=== PATIENT | male | born 1960 | race Caucasian/White ===

== ENCOUNTER → 2020-05-21 13:46 | Outpatient (BNVA) | payer MEDICARE, MEDICAID, SELFPAY | PROVIDERS: Visit Provider Internal Medicine | DX: I63.9 Cerebral infarction, unspecified (principal); Z95.818 Presence of other cardiac implants and grafts | CPT/HCPCS: 93005; 99212 ==

== ENCOUNTER → 2020-10-07 13:11 | Outpatient (BNVA) | payer MEDICARE, MEDICAID, SELFPAY | PROVIDERS: PCP Internal Medicine; Referring Provider Internal Medicine; Visit Provider Nurse Practitioner Family | DX: R07.89 Other chest pain (principal); I63.9 Cerebral infarction, unspecified; Z95.818 Presence of other cardiac implants and grafts; Z98.890 Other specified postprocedural states | CPT/HCPCS: 93005; 99212 ==

== ENCOUNTER → 2020-11-23 13:16 | Outpatient (BNVA) | payer MEDICARE, MEDICAID, SELFPAY | PROVIDERS: PCP Internal Medicine; Referring Provider Internal Medicine; Visit Provider Internal Medicine | DX: R07.2 Precordial pain (principal); Z86.73 Personal history of transient ischemic attack (TIA), and cerebral infarction without residual deficits; Z95.818 Presence of other cardiac implants and grafts | CPT/HCPCS: 99212 ==

== ENCOUNTER → 2020-12-08 09:24 | Outpatient (REF) | payer MEDICARE, MEDICAID, SELFPAY ==
--- NOTE | ~2020-12-08 | NM_ITS ---
Exercise Myocardial perfusion study Indication: Precordial chest pain to evaluate for myocardial ischemia Technique: The patient was brought in for an exercise perfusion study on 12/08/2020. Patient performed exercise as per Iker protocol and was injected 30 mCi of sestamibi was given intravenously one target HR was achieved. Images were obtained using the SPECT gamma camera interlaced with the gating device. Images were obtained in supine position. Resting perfusion study was performed on 12/11/2030. Patient was administered 30 mCi of sestamibi intravenously at rest. Images were then obtained in supine position. Images obtained with and without CT attenuation. Total DLP 103 mGy-cm. Images were processed with the software and compared side to side in short axis, horizontal long axis and vertical long axis views. Findings: The stress perfusion study showed nonattenuated images show minimally reduced uptake and thinning of the basal inferior wall of the LV myocardium. Remainder of the LV myocardium is normally perfused. Attenuation corrected images show normal uptake of radiotracer in all segments of LV myocardium. The gated study shows normal LV systolic function with calculated LVEF of 59%. LV cavity is normal in size. The gated study shows normal systolic wall thickening and contraction of all segments. There is no transient ischemic dilation. Resting study shows normal uptake of radiotracer in all segments of LV myocardium. Gating at rest reveals normal systolic wall motion with ejection fraction at 72%. The findings are consistent with normal myocardial perfusion. NM/NM cardiolite stress test Impression: 1. Normal myocardial perfusion 2. Gated LVEF is 59% 3. Transient ischemic dilatation not present Stress EKG is negative for ischemia
--- NOTE | 2020-12-08 09:27 | CA_ITS ---
Acquisition Time: 2020-12-08 09:32:57 Total Exercise Time: 00:06:54 Test Indications: Chest Pain Medications: SEE H Protocol: MEÑO Max HR: 141 BPM 87% of Pred: 162 BPM Max BP: 154/072 mmHG Max Work Load: 8.3 METS Exercise stress test with exercise 6 min 54 sec of Meño protocol, with mild sob, no chest discomfort, with one PVC at peak exercise, with normotensive response to exercise, without EKG changes meeting criteria for ischemia. Nuclear images pending. Test reviewed with Dr Álvarez, Referred By: Shady Charles Overread By: ANGEL HERMAN
== END ==
LOC: HO.CARD 09:24
PROVIDERS: Visit Provider Internal Medicine
DX: R07.2 Precordial pain (principal)
CPT/HCPCS: 78452; 93017; A9500

== ENCOUNTER → 2020-12-23 13:32 | Outpatient (BNVA) | payer MEDICARE, MEDICAID, SELFPAY | PROVIDERS: PCP Internal Medicine; Visit Provider Internal Medicine | DX: I63.9 Cerebral infarction, unspecified (principal); R07.2 Precordial pain; Z95.818 Presence of other cardiac implants and grafts | CPT/HCPCS: 99212 ==

== ENCOUNTER 2020-12-30 13:32 | Outpatient (REF) | payer MEDICARE, MEDICAID, SELFPAY ==
[2020-12-30 13:40] VITALS: BMI 29.2
[2020-12-30 13:41] VITALS: BP 114/55; PULSE 75; RESP 16; TEMP 37.1; O2SAT 96
[2020-12-30 14:20] VITALS: BP 117/60; PULSE 69; RESP 16; O2SAT 96
--- NOTE | 2020-12-30 14:21 | P.BOP_ITS ---
Brief Operative Note Date of Service: 12/30/20 Pre-op diagnosis: Embolic stroke Post-op diagnosis: same Procedure: Removal of implantable loop recorder Implants: After obtaining informed consent patient brought to the minor surgery suite. Patient was then laid supine on the operating table. The implantable loop recorder was then identified in the precordial area. The precordial area was then prepped and draped in a sterile fashion. Patient was then given 2% lidocaine with epinephrine intradermally and subcutaneously. A 1.5 cm incision was then made. The implantable loop recorder device was then removed. Surgeon: Zuhair Álvarez MD Anesthesia: local Was an Graining Machine Operator used for this Procedure?: No Estimated blood loss (mL): 3 Pathology: none sent Condition: stable Disposition: same day
== END 2020-12-30 13:33 | disposition home or self-care (01) ==
LOC: HO.MS 13:32
PROVIDERS: Visit Provider Internal Medicine Cardiovascular Disease
PROC: (CPT 33286; principal; 2020-12-30 14:00)
DX: I63.40 Cerebral infarction due to embolism of unspecified cerebral artery (principal); Z95.818 Presence of other cardiac implants and grafts; I10 Essential (primary) hypertension; R07.2 Precordial pain; E11.9 Type 2 diabetes mellitus without complications; B20 Human immunodeficiency virus [HIV] disease; E78.5 Hyperlipidemia, unspecified; Z79.4 Long term (current) use of insulin; Z79.82 Long term (current) use of aspirin; Z87.891 Personal history of nicotine dependence; Z88.8 Allergy status to other drugs, medicaments and biological substances; Z79.899 Other long term (current) drug therapy
CPT/HCPCS: 33286

== ENCOUNTER → 2021-01-12 12:37 | Outpatient (BNVA) | payer MEDICARE, MEDICAID, SELFPAY | PROVIDERS: PCP Internal Medicine; Referring Provider Internal Medicine; Visit Provider Nurse Practitioner Family | DX: Z51.89 Encounter for other specified aftercare (principal); I63.9 Cerebral infarction, unspecified; R07.2 Precordial pain | CPT/HCPCS: 99212 ==

== ENCOUNTER 2021-02-13 12:18 | Emergency (ER) | payer MEDICARE, MEDICAID, SELFPAY ==
--- NOTE | 2021-02-13 | ECG_ITS ---
Test Reason : sob Blood Pressure : / mmHG Vent. Rate : 059 BPM Atrial Rate : 059 BPM P-R Int : 188 ms QRS Dur : 096 ms QT Int : 388 ms P-R-T Axes : 058 -06 042 degrees QTc Int : 384 ms Sinus bradycardia Otherwise normal ECG Heart rate has decreased Referred By: Sharmaine Rodriguez Electronically Signed By:ALEXEY JACOBS MD
--- NOTE | ~2021-02-13 | XR_ITS ---
EXAMINATION: XR CHEST CLINICAL INFORMATION: Chest pain COMPARISON: August 05, 2018 TECHNIQUE: AP portable view of the chest was obtained. FINDINGS: No significant abnormality is noted involving the heart, lungs, mediastinum, bony thorax or soft tissues. XR/XR chest 1V IMPRESSION: No acute disease.
[2021-02-13 12:41] VITALS: BP 135/67; PULSE 66; RESP 19; TEMP 36.6; O2SAT 98; BMI 28.6
[2021-02-13 13:15] VITALS: BP 158/65; PULSE 68; RESP 22; TEMP 36.9; O2SAT 98
--- NOTE | 2021-02-13 13:20 | ED_ITS ---
HPI - Chest Pain General Chief Complaint: Chest Pain Stated Complaint: chest pain Time Seen by Provider: 02/13/21 13:17 History of Present Illness HPI narrative: Patient 60 years old presents today with having chest pain that is mid chest goes to the right. It is sharp is 1-2 seconds. There is no specific trigger. No history of diabetes. Positive history of high cholesterol. No history of smoking. Never had a heart attack. Did have a mini stroke in the past. Patient from home. No cough and a congestion or upper respiratory symptoms. Patient had his coronavirus vaccine. MD complaint: chest pain Related Data Home Medications Medication Instructions Recorded Confirmed aspirin 81 mg tablet,delayed 81 mg PO DAILY 05/21/20 01/12/21 release atorvastatin 80 mg tablet 80 mg PO DAILY 05/21/20 01/12/21 cholecalciferol (vitamin D3) 25 25 mcg PO DAILY 05/21/20 01/12/21 mcg (1,000 unit) tablet hydroxyzine HCl 25 mg tablet 25 mg PO BID 05/21/20 01/12/21 insulin regular hum U-500 conc unit SUBCUT 05/21/20 01/12/21 lamotrigine 200 mg tablet 200 mg PO DAILY 05/21/20 01/12/21 lancets 28 gauge #100 ea 05/21/20 12/23/20 levothyroxine 50 mcg tablet 50 mcg PO DAILY 05/21/20 01/12/21 lisinopril 2.5 mg tablet 2.5 mg PO DAILY 05/21/20 01/12/21 mirtazapine 45 mg tablet 45 mg PO BEDTIME 05/21/20 01/12/21 tamsulosin 0.4 mg capsule 0.4 mg PO DAILY 05/21/20 01/12/21 zolpidem 10 mg tablet 10 mg PO BEDTIME PRN 05/21/20 01/12/21 fluticasone furoate 100 1 inh INHALATION DAILY 10/07/20 01/12/21 mcg-vilanterol 25 mcg/dose inhalation powder (Breo Ellipta) abacavir 600 mg-dolutegravir 50 1 tab PO DAILY 01/12/21 01/12/21 mg-lamivudine 300 mg tablet aripiprazole 30 mg tablet 30 mg PO DAILY 01/12/21 01/12/21 etravirine 200 mg tablet 200 mg PO BID 01/12/21 01/12/21 Allergies Allergy/AdvReac Type Severity Reaction Status Date / Time From TYLOX Allergy Intermediate ITCHING Uncoded 12/23/20 13:44 Review of Systems Review of Systems: Positive chest pain No shortness breath no diaphoresis All systems reviewed otherwise negative [facility] Past Medical History Attestation statement: The following information was validated with the patient. Medical History Embolic stroke Essential hypertension HIV (human immunodeficiency virus infection) Ischemic stroke Other and unspecified hyperlipidemia Status post placement of implantable loop recorder Type 2 diabetes mellitus with unspecified complications Surgical History History of carotid endarterectomy (~10/29/18) Family History Family History Mother Breast CA Social History Social History Patient Tobacco Use Status: Former Tobacco user Quit Date: 25 years ago Advance Directives: No Physical Exam Vital Signs: Vital Signs: Last Vital Signs Temp 98.4 F 02/13/21 13:15 Pulse 68 02/13/21 13:15 Resp 22 H 02/13/21 13:15 BP 158/65 H 02/13/21 13:15 Pulse Ox 98 02/13/21 13:15 Body Mass Index 28.6 Appearance: Alert. Oriented X3. No acute distress. Eyes: Pupils equal, round and reactive to light. ENT: Pharynx normal. Neck: Normal inspection. Neck supple. No lymph nodes noted. No crepitus CVS: Normal heart rate and rhythm. Pulses normal. Normal S1 and S2 Respiratory: No respiratory distress. Breath sounds normal. No Wheezing. No rales Abdomen: Soft and nontender. No rigidity. No distention. good BS x4 Skin: Skin warm and dry. Normal skin color. Normal skin turgor. Extremities: No lower extremity edema. Neurovascular intact to all extremities. No Lacerations. No Rash Neuro: Oriented X 3. No motor deficit. No sensory deficit. Moving all extermities. No slurred speech MDM - Chest Pain MDM Narrative Medical decision making narrative: Patient cardiac enzyme was grossly negative. Patient well appearing. Pain 1-2 second atypical for ACS not associated with shortness of breath. Patient is 60 years old with multiple cardiac risk factor including diabetes hypertension and previous history of ischemic stroke in the past. Given patient's atypical history normal EKG age of 60 however did have multiple risk factor atypical history negative troponin patient heart score is 3. Will have patient closely follow up on an outpatient basis. Currently in stable condition. EKG showed a sinus pattern heart rate is 60 UT QRS QT within normal limits is no acute ST segment elevation noted. Medical Records Data Attestation: I reviewed the patient's medical records. Lab Data Result diagrams: 02/13/21 13:30 02/13/21 13:30 Labs: Lab Results 02/13/21 02/13/21 02/13/21 Range/Units 13:30 13:30 13:30 WBC 6.2 (4.8-10.8) X10*3/uL RBC 4.54 L (4.60-5.80) X10*6/uL Hgb 15.4 (14.0-18.0) g/dl Hct 44.4 (42.0-52.0) % MCV 97.8 (80.0-98.0) fL MCH 33.9 H (27.0-33.0) pg MCHC 34.7 (31.0-36.0) g/dl RDW 11.4 (11.0-16.0) % Plt Count 211 (160-400) X10*3/uL MPV 9.3 L (9.4-12.4) fL Immature Gran % (Auto) 0.6 H (0.0-0.4) % Neut % (Auto) 67.0 (45-73) % Lymph % (Auto) 19.8 L (20-40) % [place] % (Auto) 9.2 (2-11) % Eos % (Auto) 2.6 (0-4) % Baso % (Auto) 0.8 (0-2) % Lymph # (Auto) 1.2 (1.2-4.9) X10*3/uL [place] # (Auto) 0.6 (0.1-1.2) X10*3/uL Eos # (Auto) 0.2 (0.0-0.4) X10*3/uL Baso # (Auto) 0.1 (0.0-0.2) X10*3/uL Abs Immat Gran (auto) 0.04 H (0.00-0.03) X10*3/uL Absolute Neuts (auto) 4.1 (2.0-8.3) x10*3/uL Absolute Nucleated RBC 0.000 (0.0-0.012) X10*3/uL Nucleated RBC % (auto) 0.0 (0.0-0.2) /100WBC Sodium 139 (135-145) mmol/L Potassium 4.3 (3.3-5.1) mmol/L Chloride 105 (96-108) mmol/L Carbon Dioxide 25 (22-29) mmol/L Anion Gap 13 (12-20) BUN 24 H (9-16) mg/dL Creatinine 0.89 (0.5-1.4) mg/dL Estim Creat Clear Calc 98.1 Estimated GFR > 60 Random Glucose 271 H (60-115) mg/dL Calcium 9.6 (8.4-10.2) mg/dL Troponin I High Sens 3.8 (<3.5-35.0) ng/L Discharge Plan Discharge Clinical Impression: Chest discomfort Patient Disposition: Home, Self-Care Instructions: Chest Pain (ED) Prescriptions: No Action Breo Ellipta 100-25 mcg/dose blister with device 1 inh inhalation DAILY RF: 0 hydroxyzine HCl 25 mg tablet 25 mg PO BID RF: 0 levothyroxine 50 mcg tablet 50 mcg PO DAILY RF: 0 tamsulosin 0.4 mg capsule 0.4 mg PO DAILY RF: 0 atorvastatin 80 mg tablet 80 mg PO DAILY RF: 0 zolpidem 10 mg tablet 10 mg PO BEDTIME PRNRF: 0 Humulin R U-500 (Conc) Kwikpen 500 unit/mL (3 mL) insulin pen subcut RF: 0 cholecalciferol (vitamin D3) 25 mcg (1,000 unit) tablet 25 mcg PO DAILY RF: 0 mirtazapine 45 mg tablet 45 mg PO BEDTIME RF: 0 lamotrigine 200 mg tablet 200 mg PO DAILY RF: 0 lisinopril 2.5 mg tablet 2.5 mg PO DAILY RF: 0 (DME) lancets 28 gauge misc See Rx Instructions ea Not Applicable .MEDSUPPLY Qty: 100 RF: 0 aspirin 81 mg tablet,delayed release (DR/EC) 81 mg PO DAILY RF: 0 aripiprazole 30 mg tablet 30 mg PO DAILY RF: 0 [id number]-qsntrtgenvqb-pxbaatp 600-50-300 mg tablet 1 tab PO DAILY RF: 0 etravirine 200 mg tablet 200 mg PO BID RF: 0 Referrals: Zuhair Álvarez MD [Physician] - 2 days
[2021-02-13 13:34] LABS: MANUAL DIFF FLAG NO
[2021-02-13 13:35] LABS: Basophils Absolute Auto 0.1 X10*3/uL (0.0-0.2); Basophils Percent Auto 0.8 % (0-2); Eosinophils Absolute Auto 0.2 X10*3/uL (0.0-0.4); Eosinophils Percent Auto 2.6 % (0-4); Hematocrit 44.4 % (42.0-52.0); Hemoglobin 15.4 g/dl (14.0-18.0); Imm Gran Abs Auto 0.04 X10*3/uL (0.00-0.03); Imm Gran Pct Auto 0.6 % (0.0-0.4); Lymphocytes Absolute Auto 1.2 X10*3/uL (1.2-4.9); Lymphocytes Percent Auto 19.8 % (20-40); Mean Corpuscular HGB Conc 34.7 g/dl (31.0-36.0); Mean Corpuscular Hemoglobin 33.9 pg (27.0-33.0); Mean Corpuscular Volume 97.8 fL (80.0-98.0); Mean Platelet Volume 9.3 fL (9.4-12.4); Monocytes Absolute Auto 0.6 X10*3/uL (0.1-1.2); Monocytes Percent Auto 9.2 % (2-11); Neutrophils Absolute Auto 4.1 x10*3/uL (2.0-8.3); Platelet Count 211 X10*3/uL (160-400); Red Blood Count 4.54 X10*6/uL (4.60-5.80); Red Cell Distribution Width 11.4 % (11.0-16.0); White Blood Count 6.2 X10*3/uL (4.8-10.8)
[2021-02-13 13:49] LABS: Anion Gap 13 (12-20); Blood Urea Nitrogen 24 mg/dL (9-16); Calcium 9.6 mg/dL (8.4-10.2); Carbon Dioxide 25 mmol/L (22-29); Chloride 105 mmol/L (96-108); Creatinine Clr Calc Pharmacy 98.1; Estimated Glomerular Filt Rate > 60; Glucose Random 271 mg/dL (60-115); Potassium 4.3 mmol/L (3.3-5.1); Sodium 139 mmol/L (135-145)
[2021-02-13 13:57] LABS: Troponin-I High Sensitivity 3.8 ng/L (<3.5-35.0)
== END 2021-02-13 14:52 | disposition home or self-care (01) ==
PROVIDERS: Emergency Provider Emergency Medicine Emergency Medical Services; PCP Internal Medicine
DX: R07.89 Other chest pain (principal); E11.9 Type 2 diabetes mellitus without complications; Z79.4 Long term (current) use of insulin; Z87.891 Personal history of nicotine dependence; Z79.899 Other long term (current) drug therapy; Z79.82 Long term (current) use of aspirin
CPT/HCPCS: 36415; 71045; 80048; 84484; 85025; 93005; 99284

== ENCOUNTER 2021-02-16 13:36 | Outpatient (REF) | payer MEDICARE, MEDICAID, SELFPAY ==
[2021-02-16 14:45] LABS: MANUAL DIFF FLAG NO
[2021-02-16 15:11] LABS: Basophils Percent Auto 0.5 % (0-2); Eosinophils Absolute Auto 0.1 X10*3/uL (0.0-0.4); Eosinophils Percent Auto 0.9 % (0-4); Hematocrit 46.1 % (42.0-52.0); Hemoglobin 16.1 g/dl (14.0-18.0); Imm Gran Abs Auto 0.04 X10*3/uL (0.00-0.03); Imm Gran Pct Auto 0.5 % (0.0-0.4); Lymphocytes Absolute Auto 1.5 X10*3/uL (1.2-4.9); Lymphocytes Percent Auto 19.3 % (20-40); Mean Corpuscular HGB Conc 34.9 g/dl (31.0-36.0); Mean Corpuscular Hemoglobin 33.3 pg (27.0-33.0); Mean Corpuscular Volume 95.4 fL (80.0-98.0); Mean Platelet Volume 9.5 fL (9.4-12.4); Monocytes Absolute Auto 0.6 X10*3/uL (0.1-1.2); Monocytes Percent Auto 8.1 % (2-11); Neutrophils Absolute Auto 5.5 x10*3/uL (2.0-8.3); Neutrophils Percent Auto 70.7 % (45-73); Platelet Count 238 X10*3/uL (160-400); Red Blood Count 4.83 X10*6/uL (4.60-5.80); Red Cell Distribution Width 11.4 % (11.0-16.0); White Blood Count 7.8 X10*3/uL (4.8-10.8)
[2021-02-16 15:24] LABS: Estimated Average Glucose 192 mg/dL; Hemoglobin A1c % 8.3 %
[2021-02-16 15:37] LABS: Alanine Aminotransferase 45 U/L (0-40); Albumin Level 4.6 g/dL (3.5-5.0); Alkaline Phosphatase 106 U/L (39-117); Anion Gap 15 (12-20); Aspartate Amino Transferase 23 U/L (5-37); Bilirubin Total 1.5 mg/dL (0.0-1.0); Blood Urea Nitrogen 26 mg/dL (9-16); Calcium 9.9 mg/dL (8.4-10.2); Carbon Dioxide 24 mmol/L (22-29); Chloride 103 mmol/L (96-108); Estimated Glomerular Filt Rate > 60; Glucose Random 288 mg/dL (60-115); Potassium 4.3 mmol/L (3.3-5.1); Sodium 138 mmol/L (135-145); Total Protein 7.1 g/dL (6.5-8.0)
[2021-02-17 03:16] LABS: CT PCR NOT DETECTED (Not Detect.); NG PCR NOT DETECTED (Not Detect.)
[2021-02-17 09:11] LABS: Syphilis Screen Nonreactive (Nonreactive)
[2021-02-17 15:11] LABS: Absolute CD3 Count 1150 cells/uL (840-3060); Absolute CD4 Count 700 cells/uL (490-1740); Absolute CD8 Count 457 cells/uL (180-1170); Absolute Lymphocytes 1563 cells/uL (850-3900); CD4 CD8 Ratio 1.53 (0.86-5.00); Percent CD3 Cells 74 % (57-85); Percent CD4 Cells 45 % (30-61); Percent CD8 Cells 29 % (12-42)
[2021-02-18 13:56] LABS: HIV RNA PCR Qn Copies <20 NOT DETECTED copies/mL (NOT DETECTED); HIV RNA PCR Qn Log Copies <1.30 NOT DETECTED (NOT DETECTED)
== END 2021-02-16 13:37 | disposition home or self-care (01) ==
LOC: HO.LAB 13:36
PROVIDERS: Absent Provider Internal Medicine Infectious Disease; PCP Internal Medicine; Referring Provider Internal Medicine; Visit Provider Nurse Practitioner Family
DX: B20 Human immunodeficiency virus [HIV] disease (principal)
CPT/HCPCS: 80053; 83036; 85025; 86359; 86360; 86780; 87491; 87536; 87591; 99212

== ENCOUNTER → 2022-01-12 12:13 | Outpatient (BNVA) | payer MEDICARE, MEDICAID, SELFPAY | PROVIDERS: PCP Internal Medicine; Referring Provider Internal Medicine; Visit Provider Internal Medicine | DX: Z86.73 Personal history of transient ischemic attack (TIA), and cerebral infarction without residual deficits (principal) | CPT/HCPCS: 93005; 99212 ==

== ENCOUNTER 2023-01-25 12:38 | Outpatient (AMB) | payer MEDICARE, MEDICAID, SELFPAY ==
--- NOTE | 2023-01-25 12:46 | A.OFFVIS_ITS ---
Intake Intake Visit Reasons: CRITICAL CARE PARAMEDIC-Rt shoulder pain Intake Note: Aroldo is a 62 year old male who presents today as a new patient for a evaluation for his right shoulder pain. Patient reports ongoing pain for 3 weeks due to falling in the shower. He states that he had to pick himself up and he felt a sharp pain in his shoulder. Patient has been doing stretching exercises on his own. He states that his discomfort and range of motion have improved significantly over the last week. He does not take any medicines for his discomfort. He does report mild weakness when lifting his right hand above shoulder height. Allergies From TYLOX Allergy (Intermediate, Uncoded 01/12/22 12:36) ITCHING Medication List - Last Reconciled 01/25/23 by Sajan Doyle MD [id number]-bknnnvioykhl-[id number] 600-50-300 mg 1 tab PO DAILY aripiprazole 25 mg PO DAILY aspirin 81 mg PO DAILY atorvastatin 80 mg PO DAILY cholecalciferol (vitamin D3) 25 mcg PO DAILY etravirine 200 mg PO BID fluticasone furoate-vilanterol 100-25 mcg/dose (Breo Ellipta) 1 inh inhalation DAILY hydroxyzine HCl 25 mg PO ONCE insulin regular hum U-500 conc 30 units subcut lamotrigine 200 mg PO DAILY lancets As directed levothyroxine 50 mcg PO DAILY mirtazapine 45 mg PO BEDTIME tamsulosin 0.4 mg PO DAILY zolpidem 10 mg PO BEDTIME PRN [facility] Medical History Embolic stroke Essential hypertension HIV (human immunodeficiency virus infection) Ischemic stroke Other and unspecified hyperlipidemia Status post placement of implantable loop recorder Type 2 diabetes mellitus with unspecified complications Surgical History History of carotid endarterectomy (~10/29/18) Family History Mother Breast CA Social History Alcohol intake: never Patient Tobacco Use Status: Former Tobacco user Quit Date: 2000 Years Smoked: 25 +/- Physical Exam Const Other: Well-nourished well-developed very friendly male awake alert and oriented x3 in no acute distress Extrem Other: Bilateral upper extremity examination shows good capillary refill, no skin lesions noted, normal sensation light touch Right shoulder examination shows slightly decreased active range of motion but full passive range of motion when compared to his left shoulder, 4/5 strength with supraspinatus testing, positive impingement signs, tenderness over his acromioclavicular joint, no instability Results Reviewed Results Reviewed: X-rays of the patient's right shoulder show severe acromioclavicular joint narrowing, a type 3 acromion, no acute bony abnormalities Assessment & Plan Assessment & Plan (1) Right shoulder pain: Code(s): M25.511 - Pain in right shoulder Plan Mr. Paula presents with right shoulder pain due to impingement syndrome and rotator cuff tendinosis versus possible rotator cuff tearing. I had a lengthy discussion with the patient regarding the treatment options. At this point the patient's symptoms are tolerable to him. We will hold off on a cortisone injection. He will continue with his home stretching program and activity modifications. I will see him back in 6 weeks time for repeat clinical examination. Feel free to call me at any time should questions regarding his orthopedic management arise. Thank you very much for asking me to see this very friendly gentleman. I spent 22 minutes in reviewing the patient's records and imaging studies, seeing the patient and documenting in the medical record. Orders: Orders XR shoulder RT min 2V Today M25.511 - Pain in right shoulder Coding Level of Care Code New Pt Level 2 (37429) Diagnoses Right shoulder pain M25.511
== END 2023-01-25 13:06 | disposition home or self-care (01) ==
PROVIDERS: PCP Internal Medicine; Visit Provider Orthopaedic Surgery
DX: M25.511 Pain in right shoulder (principal)
CPT/HCPCS: 99202

== ENCOUNTER 2023-01-25 14:04 | Outpatient (REF) | payer MEDICARE, MEDICAID, SELFPAY ==
--- NOTE | ~2023-01-25 | XR_ITS ---
EXAMINATION: XR SHOULDER, RIGHT CLINICAL INFORMATION: Right shoulder pain. COMPARISON: Shoulder radiographs from [facility] 01/03/2023 and chest radiograph 02/13/2021 and 08/05/2018. TECHNIQUE: Two views of the right shoulder. FINDINGS: Again seen are extensive subcutaneous soft tissue calcifications in the lateral upper arm. The glenohumeral joint appears normal. Cortical thickening involving the mid to proximal humeral diaphysis. Differential would include entities such as Paget's disease or possibly old healed fracture. The entire process is not imaged on this exam. XR/XR shoulder RT min 2V IMPRESSION: 1. Extensive subcutaneous soft tissue calcifications in the lateral upper arm. 2. Cortical thickening mid to proximal humeral diaphysis, as described above. Full radiographic evaluation of the humerus is recommended if this patient has no history of trauma in this region.
== END 2023-01-25 14:05 | disposition home or self-care (01) ==
LOC: HO.HOSX 14:04
PROVIDERS: Visit Provider Orthopaedic Surgery
DX: M25.511 Pain in right shoulder (principal); Z79.899 Other long term (current) drug therapy
CPT/HCPCS: 73030; 99202

== ENCOUNTER 2023-03-08 12:59 | Outpatient (AMB) | payer MEDICARE, MEDICAID, SELFPAY ==
--- NOTE | 2023-03-08 13:01 | A.OFFVIS_ITS ---
Intake Vital Signs 03/08/23 13:03 Height 5 ft 8.5 in Weight 170 lb BMI 25.5 Intake Visit Reasons: ov- -Rt shoulder pain Intake Note: Aroldo is a 62 year old male who presents today for a follow up of his right shoulder discomfort. The patient states that he has been doing stretching exercises on his own. He has also been resting his shoulder. He reports minimal discomfort at this time. He does not take any medicines for his discomfort. Allergies From TYLOX Allergy (Intermediate, Uncoded 03/08/23 13:03) ITCHING Medication List - Last Reconciled 03/08/23 by Sajan Doyle MD [id number]-aozckvdqaurz-nxtpfqo 600-50-300 mg 1 tab PO DAILY aripiprazole 25 mg PO DAILY aspirin 81 mg PO DAILY atorvastatin 80 mg PO DAILY cholecalciferol (vitamin D3) 25 mcg PO DAILY etravirine 200 mg PO BID fluticasone furoate-vilanterol 100-25 mcg/dose (Breo Ellipta) 1 inh inhalation DAILY hydroxyzine HCl 25 mg PO ONCE insulin regular hum U-500 conc 30 units subcut lamotrigine 200 mg PO DAILY lancets As directed levothyroxine 50 mcg PO DAILY mirtazapine 45 mg PO BEDTIME tamsulosin 0.4 mg PO DAILY zolpidem 10 mg PO BEDTIME PRN PFSH Medical History HIV (human immunodeficiency virus infection) Other and unspecified hyperlipidemia Essential hypertension Type 2 diabetes mellitus with unspecified complications Status post placement of implantable loop recorder Ischemic stroke Embolic stroke Surgical History History of carotid endarterectomy (~10/29/18) Family History Mother Breast CA Social History Alcohol intake: never Patient Tobacco Use Status: Former Tobacco user Quit Date: 2000 Years Smoked: 25 +/- Physical Exam Vital Signs: BMI result Body Mass Index 25.5 Const Other: Well-nourished well-developed very friendly male awake alert and oriented x3 in no acute distress Extrem Other: Bilateral upper extremity examination shows good capillary refill, no skin lesions noted, normal sensation light touch Right shoulder examination shows almost full range of motion when compared to h is left shoulder, 4+ out of 5 strength with supraspinatus testing, positive impingement signs, no instability Assessment & Plan Assessment & Plan (1) Right shoulder pain: Code(s): M25.511 - Pain in right shoulder Plan Mr. Paula presents with intermittent discomfort in his right shoulder most likely due to impingement syndrome and acromioclavicular joint arthritis. I had a lengthy discussion with the patient regarding the treatment options. At this time the patient's symptoms are tolerable to him. We will hold off on a cortisone injection. The do's and don'ts of lifting were discussed at length with the patient. He will follow up with me on an as-needed basis should his symptoms worsen in any way. Feel free to call me at any time should questions regarding his orthopedic management arise. I spent 20 minutes in reviewing the patient's records and imaging studies, seeing the patient and documenting in the medical record. Coding Level of Care Code Est Pt Level 2 (27229) Diagnoses Right shoulder pain M25.511
[2023-03-08 13:03] VITALS: BMI 25.5
== END 2023-03-08 13:46 | disposition home or self-care (01) ==
PROVIDERS: PCP Internal Medicine; Visit Provider Orthopaedic Surgery
DX: M25.511 Pain in right shoulder (principal)
CPT/HCPCS: 99212

== ENCOUNTER → 2023-03-08 13:00 | Outpatient (BNVA) | payer MEDICARE, MEDICAID, SELFPAY | PROVIDERS: PCP Internal Medicine; Visit Provider Orthopaedic Surgery | DX: M25.511 Pain in right shoulder (principal) | CPT/HCPCS: 99212 ==

== ENCOUNTER 2023-08-23 12:25 | Emergency (ER) | payer MEDICARE, MEDICAID, SELFPAY ==
[2023-08-23 12:32] VITALS: BP 143/52; PULSE 64; RESP 16; TEMP 37.1; O2SAT 98; BMI 24.9
--- NOTE | 2023-08-23 12:32 | ED.GENADULT ---
HPI - General Adult General Chief complaint: General Medical Stated complaint: Trouble swallowing Related Data Home Medications ?Medication ?Instructions ?Recorded ?Confirmed aspirin 81 mg tablet,delayed 81 mg PO DAILY 05/21/20 03/08/23 release atorvastatin 80 mg tablet 80 mg PO DAILY 05/21/20 03/08/23 cholecalciferol (vitamin D3) 25 25 mcg PO DAILY 05/21/20 03/08/23 mcg (1,000 unit) tablet lamotrigine 200 mg tablet 200 mg PO DAILY 05/21/20 03/08/23 lancets 28 gauge #100 ea 05/21/20 03/08/23 levothyroxine 50 mcg tablet 50 mcg PO DAILY 05/21/20 03/08/23 mirtazapine 45 mg tablet 45 mg PO BEDTIME 05/21/20 03/08/23 tamsulosin 0.4 mg capsule 0.4 mg PO DAILY 05/21/20 03/08/23 zolpidem 10 mg tablet 10 mg PO BEDTIME PRN 05/21/20 03/08/23 fluticasone furoate 100 1 inh inhalation DAILY 10/07/20 03/08/23 mcg-vilanterol 25 mcg/dose inhalation powder (Breo Ellipta) abacavir 600 mg-dolutegravir 50 1 tab PO DAILY 01/12/21 03/08/23 mg-lamivudine 300 mg tablet etravirine 200 mg tablet 200 mg PO BID 01/12/21 03/08/23 aripiprazole 30 mg tablet 25 mg PO DAILY 01/12/22 03/08/23 hydroxyzine HCl 25 mg tablet 25 mg PO ONCE 01/12/22 03/08/23 insulin regular hum U-500 conc 500 30 unit subcut 01/12/22 03/08/23 unit/mL(3 mL) subcut pen Allergies Allergy/AdvReac Type Severity Reaction Status Date / Time From TYLOX Allergy Intermediate ITCHING Uncoded 08/23/23 12:34 [facility] Past Medical History Medical History HIV (human immunodeficiency virus infection) Other and unspecified hyperlipidemia Essential hypertension Type 2 diabetes mellitus with unspecified complications Status post placement of implantable loop recorder Ischemic stroke Embolic stroke Surgical History History of carotid endarterectomy (~10/29/18) Family History Family History Mother Breast CA Social History Social History Alcohol intake: never Patient Tobacco Use Status: Former Tobacco user Quit Date: 2000 Years Smoked: 25 +/- Advance Directives: No Advance Directives Information Provided: No Physical Exam ED Vital Signs: Vital Signs - 24 hr 08/23/23 12:32 Temperature 98.7 F Pulse Rate 64 Respiratory Rate 16 Blood Pressure 143/52 H Pulse Oximetry 98 Oxygen Delivery Method Room Air BMI result Body Mass Index 24.9 Course Course Course Narrative: This is a rapid medical exam performed by Janeen Benson NP: Additional HPI, ROS, PE not included below will be deferred to primary provider. Patient is a 62-year-old male with history of ischemic and embolic stroke, s/p loop recorder implant presenting to the ED with complaint of throat swelling and difficulty swallowing for the past few weeks. Reports difficulty taking his medications and drinking water. Managing secretions in triage, no uvula edema, slight erythema. Plan: strep and viral swabs, basic labs Medical Decision Making Lab Data 08/23/23 13:10 08/23/23 13:10 Labs: Lab Results 08/23/23 Range/Units 13:10 WBC 7.6 (4.8-10.8) X10*3/uL RBC 4.35 L (4.60-5.80) X10*6/uL Hgb 15.3 (14.0-18.0) g/dl Hct 42.5 (42.0-52.0) % MCV 97.7 (80.0-98.0) fL MCH 35.2 H (27.0-33.0) pg MCHC 36.0 (31.0-36.0) g/dl RDW 11.7 (11.0-16.0) % Plt Count 195 (160-400) X10*3/uL MPV 9.0 L (9.4-12.4) fL Immature Gran % (Auto) 0.7 H (0.0-0.4) % Neut % (Auto) 75.2 H (45-73) % Lymph % (Auto) 13.4 L (20-40) % [place] % (Auto) 7.2 (2-11) % Eos % (Auto) 2.4 (0-4) % Baso % (Auto) 1.1 (0-2) % Lymph # (Auto) 1.0 L (1.2-4.9) X10*3/uL [place] # (Auto) 0.6 (0.1-1.2) X10*3/uL Eos # (Auto) 0.2 (0.0-0.4) X10*3/uL Baso # (Auto) 0.1 (0.0-0.2) X10*3/uL Abs Immat Gran (auto) 0.05 H (0.00-0.03) X10*3/uL Absolute Neuts (auto) 5.7 (2.0-8.3) x10*3/uL Absolute Nucleated RBC 0.000 (0.0-0.012) X10*3/uL Nucleated RBC % (auto) 0.0 (0.0-0.2) /100WBC Sodium 142 (135-145) mmol/L Potassium 4.0 (3.3-5.1) mmol/L Chloride 107 (96-108) mmol/L Carbon Dioxide 24 (22-29) mmol/L Anion Gap 15 (12-20) BUN 18 H (9-16) mg/dL Creatinine 0.93 (0.5-1.4) mg/dL Estim Creat Clear Calc 83.4 Estimated GFR > 60 Random Glucose 177 H (60-115) mg/dL Calcium 10.2 (8.4-10.2) mg/dL Total Bilirubin 1.5 H (0.0-1.0) mg/dL AST 29 (5-37) U/L ALT 46 H (0-40) U/L Alkaline Phosphatase 123 H (39-117) U/L Total Protein 7.4 (6.5-8.0) g/dL Albumin 4.7 (3.5-5.0) g/dL Influenza Type A (PCR) NEGATIVE (Negative) Influenza Type B (PCR) NEGATIVE (Negative) RSV RNA Qual (PCR) NEGATIVE (Negative) SARS-CoV-2 RNA (RT-PCR) NEGATIVE (Negative) S. pyogenes GrpA [place] Negative (Negative) Discharge Plan Discharge Clinical Impression: Diagnosis unknown Patient Disposition: Left W/O Completing Treatment Prescriptions: No Action Breo Ellipta 100-25 mcg/dose blister with device 1 inh inhalation DAILY levothyroxine 50 mcg tablet 50 mcg PO DAILY tamsulosin 0.4 mg capsule 0.4 mg PO DAILY atorvastatin 80 mg tablet 80 mg PO DAILY zolpidem 10 mg tablet 10 mg PO BEDTIME PRN cholecalciferol (vitamin D3) 25 mcg (1,000 unit) tablet 25 mcg PO DAILY mirtazapine 45 mg tablet 45 mg PO BEDTIME lamotrigine 200 mg tablet 200 mg PO DAILY (DME) lancets 28 gauge misc See Rx Instructions Not Applicable .MEDSUPPLY Qty: 100 Rx Instructions: As directed aspirin 81 mg tablet,delayed release (DR/EC) 81 mg PO DAILY cnjyjtkb-hplxmjklygxn-izbtmrg 600-50-300 mg tablet 1 tab PO DAILY etravirine 200 mg tablet 200 mg PO BID hydroxyzine HCl 25 mg tablet 25 mg PO ONCE aripiprazole 30 mg tablet 25 mg PO DAILY insulin regular hum U-500 conc 500 unit/mL (3 mL) insulin pen 30 unit subcut Discharge Date/Time: 08/23/23 16:34
[2023-08-23 13:14] LABS: MANUAL DIFF FLAG NO
[2023-08-23 13:16] LABS: Basophils Absolute Auto 0.1 X10*3/uL (0.0-0.2); Basophils Percent Auto 1.1 % (0-2); Eosinophils Absolute Auto 0.2 X10*3/uL (0.0-0.4); Eosinophils Percent Auto 2.4 % (0-4); Hematocrit 42.5 % (42.0-52.0); Hemoglobin 15.3 g/dl (14.0-18.0); Imm Gran Abs Auto 0.05 X10*3/uL (0.00-0.03); Imm Gran Pct Auto 0.7 % (0.0-0.4); Lymphocytes Percent Auto 13.4 % (20-40); Mean Corpuscular Hemoglobin 35.2 pg (27.0-33.0); Mean Corpuscular Volume 97.7 fL (80.0-98.0); Monocytes Absolute Auto 0.6 X10*3/uL (0.1-1.2); Monocytes Percent Auto 7.2 % (2-11); Neutrophils Absolute Auto 5.7 x10*3/uL (2.0-8.3); Neutrophils Percent Auto 75.2 % (45-73); Platelet Count 195 X10*3/uL (160-400); Red Blood Count 4.35 X10*6/uL (4.60-5.80); Red Cell Distribution Width 11.7 % (11.0-16.0); White Blood Count 7.6 X10*3/uL (4.8-10.8)
[2023-08-23 13:26] LABS: IDNOW Serial# 58CA691E; Strep A Nucleic Acid Negative (Negative)
[2023-08-23 13:33] LABS: Alanine Aminotransferase 46 U/L (0-40); Albumin Level 4.7 g/dL (3.5-5.0); Alkaline Phosphatase 123 U/L (39-117); Anion Gap 15 (12-20); Aspartate Amino Transferase 29 U/L (5-37); Bilirubin Total 1.5 mg/dL (0.0-1.0); Blood Urea Nitrogen 18 mg/dL (9-16); Calcium 10.2 mg/dL (8.4-10.2); Carbon Dioxide 24 mmol/L (22-29); Chloride 107 mmol/L (96-108); Creatinine Clr Calc Pharmacy 83.4; Estimated Glomerular Filt Rate > 60; Glucose Random 177 mg/dL (60-115); Sodium 142 mmol/L (135-145); Total Protein 7.4 g/dL (6.5-8.0)
[2023-08-23 13:58] LABS: Influenza A PCR NEGATIVE (Negative); Influenza B PCR NEGATIVE (Negative); Resp Syncy Virus RNA Qual PCR NEGATIVE (Negative); SARS COV2 PCR INHOUSE NEGATIVE (Negative)
== END 2023-08-23 16:34 | disposition left against medical advice (07) ==
PROVIDERS: Registered Nurse Emergency; Emergency Provider Emergency Medicine; PCP Internal Medicine
DX: R13.10 Dysphagia, unspecified (principal); I10 Essential (primary) hypertension; E11.9 Type 2 diabetes mellitus without complications; Z03.818 Encounter for observation for suspected exposure to other biological agents ruled out
CPT/HCPCS: 0241U; 80053; 85025; 87651; 99281; 99283

== ENCOUNTER → 2024-05-16 13:36 | Outpatient (BNVA) | payer MEDICARE, MEDICAID, SELFPAY | PROVIDERS: PCP Physician Assistant; Visit Provider Physician Assistant | DX: E11.65 Type 2 diabetes mellitus with hyperglycemia (principal); Z79.4 Long term (current) use of insulin; I63.411 Cerebral infarction due to embolism of right middle cerebral artery; M21.41 Flat foot [pes planus] (acquired), right foot; M21.42 Flat foot [pes planus] (acquired), left foot; E03.9 Hypothyroidism, unspecified; J45.30 Mild persistent asthma, uncomplicated; B20 Human immunodeficiency virus [HIV] disease; F33.1 Major depressive disorder, recurrent, moderate | CPT/HCPCS: 83036; 96127; 96160; 99202 ==

== ENCOUNTER → 2024-05-16 13:36 | Outpatient (AMB) | payer MEDICARE, MEDICAID, SELFPAY ==
--- OUTSIDE RECORDS SUMMARY | 2024-05-16 13:40 | XMS_ITS | Clinical Summary ---
[facility] Address [address] [place] [address] Care Team Providers Care Warrant Clerk Name Role Phone Unavailable Primary Care Provider Unavailabl e Social History Tobacco Use Types Packs/Day Years Used Date Smoking Tobacco: Never Assessed Sex and Gender Information Value Date Recorded Sex Assigned at Not on file Gender Identity Not on file Sexual Orientation Not on file Plan of Treatment Health Maintenance Due Date Last Done Comments DTaP,Tdap,and Td Vaccines (1 - Tdap) 1980 Zoster Vaccines (1 of 2) 12/11/2011 COVID-19 Vaccine (2023-2 5 season) 2023 Influenza Vaccine (#1) 2023 RSV Immunization Patients 60 + Years Old (1 - 1-dose 75+ series) 2036 HIB Vaccines Aged Out No longer eligi ble based on patient's age to complete this topic HPV Vaccines Aged Out No longer eligi ble based on patient's age to complete this topic Hepatitis A Vaccines Aged Out No long er eligible based on patient's age to complete this topic Hepatitis B Vaccines Aged Out No long er eligible based on patient's age to complete this topic IPV Vaccines Aged Out No longer eligi ble based on patient's age to complete this topic MMR Vaccines Aged Out No longer eligi ble based on patient's age to complete this topic Meningococcal ACWY Vaccine Aged Out N o longer eligible based on patient's age to complete this topic Pneumococcal Vaccine: Pediat rics (0 to 5 Years) and At-Risk Patients (6 to 64 Years) Aged Out No longer eligible b ased on patient's age to complete this topic RSV Immunization Patients Un lanette 20 months Aged Out No longer eligible b ased on patient's age to complete this topic Varicella Vaccines Aged Out No longer eligible based on patient's age to complete this topic
--- NOTE | 2024-05-16 13:41 | A.OFFPC_ITS ---
Vital Signs 05/16/24 13:42 Height 5 ft 9 in Weight 166 lb 6 oz BMI 24.6 BP 108/64 Blood Pressure Location Lt brachial Position Sitting Respiration 15 Pulse 64 Pulse Source Pulse Oximeter Temp 97.5 F Temp Source Temporal Artery Scan Pulse Oximetry (%) 97 Oxygen Delivery Method Room Air Intake Visit Reasons: establish care Intake Note: Patient is a new patient here to establish care for DMII, Thyroid. Transferring care from Dr. Vipul Macdonald MD/[facility]. Medical records have been requested today. Valve Machine Operator Required: No Accompanied by: Self / Same As Patient Allergies From TYLOX Allergy (Intermediate, Uncoded 05/16/24 14:06) ITCHING Medication List - Last Reconciled 05/16/24 by Doni Stevenson PA-C nmknfrpu-wtnkjadxtswa-mtyoepv 600-50-300 mg 1 tab PO DAILY aripiprazole 25 mg PO DAILY aspirin 81 mg PO DAILY atorvastatin 80 mg PO DAILY cholecalciferol (vitamin D3) 25 mcg PO DAILY etravirine 200 mg PO BID fluticasone furoate-vilanterol 100-25 mcg/dose (Breo Ellipta) 1 inh inhalation DAILY hydroxyzine HCl 25 mg PO ONCE insulin regular hum U-500 conc 30 units subcut lamotrigine 200 mg PO DAILY lancets As directed levothyroxine 50 mcg PO DAILY mirtazapine 45 mg PO BEDTIME tamsulosin 0.4 mg PO DAILY zolpidem 10 mg PO BEDTIME PRN HPI establish care HPI Details Patient is a 63-year-old male here today for a new patient visit. This the 1st time I am meeting this 63-year-old male with a past medical history significant for hypertension, hyperlipidemia, type 2 diabetes, MDD, HIV( on antiviral therapy), history of embolic stroke, carotid artery disease with left carotid endarterectomy. Concern--> he reports he has bilateral plantar arch foot pain to which he attributes to having flat feet. He is interested in seeing a laborer chicken farm for professional shoe inserts to help him with his pain. .. HIV: Seed ID ( Dr Whitmore) [facility] and continues on antiviral therapy. He reports his viral loads have been nondetectable. .. MDD: Sees a Dr. Jacy Crum ( [facility] ) who manages his mental health medications. He feels stable from a mental health point of [place] . DMII: Today's A1c is 6.7. He continues with insulin therapy on a daily basis . CVA: Had a previous stroke many years ago and left him with cognitive and motor delay. He has not been able to drive. He depends on family and friends for transportation. He lives on a fix and [facility] Medical History (Updated 05/16/24 @ 14:30 by Doni Stevenson PA-C) HIV (human immunodeficiency virus infection) Other and unspecified hyperlipidemia Essential hypertension Type 2 diabetes mellitus with unspecified complications Status post placement of implantable loop recorder Embolic stroke Surgical History History of carotid endarterectomy (~10/29/18) Family History Mother Breast CA Social History Alcohol intake: never Patient Tobacco Use Status: Former Tobacco user Years Smoked: 25 +/- Questionnaire PHQ-9 Over the last 2 weeks, how often have you been bothered by any of the following problems? 1. Little interest or pleasure in doing things: not at all 2. Feeling down, depressed, or hopeless: not at all 3. Trouble falling or staying asleep, or sleeping too much: not at all 4. Feeling tired or having little energy: not at all 5. Poor appetite or overeating: not at all 6. Feeling bad about yourself - or that you are a failure or have let yourself or your family down: not at all 7. Trouble concentrating on things, such as reading the newspaper or watching television: not at all 8. Moving or speaking so slowly that other people could have noticed. Or the opposite - being so fidgety or restless that you have been moving around a lot more than usual: not at all 9. Thoughts that you would be better off or of hurting yourself in some way: not at all Total score: 0 Depression Screening Interpretation: Negative Depression Screening Done: Yes 17973 - PHQ-9 Billing: Yes Source: Developed by Drs. Bernardo Randall, Rachael BRobin Elmore and colleagues, with an educational maryanne from [employer]. Thrive Questionnaire I am a: Patient What is your living situation today?: I have a steady place to live Within the past 12 months, did the food you bought not last and you didn't have the money to get more?: Never true Within the past 12 months, did you worry whether your food would run out before you got money to buy more?: Never true Do you have trouble paying for medicines?: No Do you have trouble getting transportation to medical appointments?: No Do you have trouble paying your heating and electricity bill?: No Do you have trouble taking care of your child, family member or friend?: No Do you have trouble with day-to-day activities such as bathing, preparing meals, shopping, managing finances, etc.?: No Are you currently unemployed and looking for a job?: Yes Are you interested in more education?: No Please select the resources that you would like help with: None Currently or been in a relationship where the following occur: I choose not to answer THRIVE Score: 0 AUDIT C Alcohol Use Questionnaire (AUDIT-C) 1. How often do you have a drink containing alcohol?: Never Total Score: 0 TIFFANIE-7 AMB Questionnaire TIFFANIE-7 Feeling nervous, anxious, or on edge: 0 = Not at all Not being able to stop or control worryin = Not at all Worrying too much about different things: 0 = Not at all Trouble relaxin = Not at all Being so restless that it is hard to sit still: 0 = Not at all Becoming easily annoyed or irritable: 0 = Not at all Feeling afraid as if something awful might happen: 0 = Not at all Total TIFFANIE-7 score (0-4 normal; 5-9 mild; 10-14 moderate; 15-21 severe): 0 Source: Developed by Drs. Bernardo Randall, Robin Francois and colleagues, with an educational maryanne from [employer]. TIFFANIE-7 Assessment Billing TIFFANIE-7 Assessment Tool: TIFFANIE-7 Assessment 07832 ACT Questionnaire In the past 4 weeks, how much of the time did your asthma keep you from getting as much done at work, school or at home?: None of the time During the past 4 weeks, how often have you had shortness of breath?: Not at all During the past 4 weeks, how often did your asthma symptoms wake you up at night or earlier than usual in the morning?: Not at all During the past 4 weeks, how often have you had to use your rescue inhaler or nebulizer medication?: Not at all How would you rate your asthma control during the past 4 weeks?: Completely controlled ACT Interpretation: Negative Score: 25 Review of Systems Const Denies headache(s) Eyes Denies loss of vision ENT Denies vertigo, Denies dizziness, Denies headache(s) and Denies sore throat Card Denies chest pain, Denies leg edema and Denies lightheadedness Resp Denies cough, Denies hemoptysis and Denies wheezing GI Denies abdominal pain, Denies melena, Denies constipation, Denies diarrhea and Denies vomiting Denies dysuria, Denies urinary frequency and Denies urinary urgency Musc Denies arthralgias, Denies joint swelling, Denies numbness and Denies tingling Neuro Denies Abnormal speech present, Denies behavioral changes, Denies vertigo, Denies dizziness, Denies headache(s), Denies loss of vision, Denies memory loss, Denies numbness and Denies tingling Psych Denies anxiety, Denies behavioral changes, Denies depression, Denies memory loss and Denies panic attacks Stan/Lymph Denies easy bleeding and Denies easy bruising Aller/Immun Denies wheezing Physical exam (Primary Care) Vital Signs: Last Vital Signs Temp 97.5 F 05/16/24 13:42 Pulse 64 05/16/24 13:42 Resp 15 05/16/24 13:42 BP 108/64 05/16/24 13:42 Pulse Ox 97 05/16/24 13:42 Oxygen Delivery Method Room Air 05/16/24 13:42 BMI result Body Mass Index 24.6 Tobacco/Smoking Status: Tobacco use Status Patient Tobacco Use Status Former Tobacco user 05/16/24 13:44 PHQ-9: PHQ-9 Score PHQ-9: Total score 0 05/16/24 14:07 Depression Screening Interpretation: Negative Currently or been in a relationship where the following occur: I choose not to answer Const General: healthy appearing, no acute distress, alert and awake Nutritional Appearance: well nourished Orientation/consciousness: oriented to person, oriented to place and oriented to time HENNH Ears: TM's normal bilaterally General nose exam: Normal nasal mucous membranes and turbinates present Eyes Conjunctivae: conjunctivae normal Sclerae: sclerae normal Pupils: Equal, round and reactive pupils present Neck Neck: Yes no lymphadenopathy and Yes no JVD Thyroid: Thyroid normal Carotids: no bruits Resp Effort & Inspection: normal respiratory effort and not tachypneic Auscultation: no crackles, no rales, no rhonchi and no wheezes Cardio Rate: regular rate Rhythm: regular rhythm Heart sounds: no murmurs and normal S1 and S2 GI Palpation (GI): Soft to palpation, nontender, no hepatomegaly and no splenomegaly Auscultation: normal bowel sounds Skin General skin exam: no rashes or lesions noted and dry skin Neuro General: oriented to person, oriented to place and oriented to time Cranial nerves: Yes Equal, round and reactive pupils present Speech: No Abnormal speech present Gait exam (Neuro): Normal gait present Motor exam (neuro): no tremor noted Extrem Right upper extremity: full ROM Left upper extremity: full ROM Right lower extremity: full ROM; no edema Left lower extremity: full ROM; no edema Psych Mental Status: mental status grossly normal Speech and movement: Normal speech and movement present Affect: normal affect Attitude: cooperative Thought process: Normal thought process present Office Procedures Flu Questionnaire Does the patient have a severe egg allergy?: No Results AMB Hemoglobin A1c AMB Hemoglobin A1c 6.3 % Last Edit by RAJESH Mcclellan on 05/16/24 14:16 Immunizations Fluarix Triv [id number] (PF) 45 mcg (15 mcg x 3)/0.5 mL IM syringe Performing Provider: Doni Stevenson PA-C [facility] Documented (not given) by: RAJESH Mcclellan on 05/16/24 14:01 Reason Not Given: Patient Refused Coding Level of Care Code New Pt Level 4 (81994) Diagnoses Type 2 diabetes mellitus with hyperglycemia, with long-term current use of insulin E11.65; Z79.4 Diabetes mellitus usp insulin use: with terminal computer operator use Diabetes mellitus complication status: with hyperglycemia Cerebrovascular accident (CVA) due to embolism of right middle cerebral artery I63.411 Laterality of affected vessel: right Precerebral and cerebral artery: middle cerebral artery Flat feet, bilateral M21.41; M21.42 Hypothyroidism, unspecified type E03.9 Hypothyroidism type: unspecified Mild persistent asthma without complication J45.30 Asthma complication type: uncomplicated Asthma persistence: persistent Asthma severity: mild HIV (human immunodeficiency virus infection) B20 MDD (major depressive disorder), recurrent episode, moderate F33.1 Additional Codes PHQ-9 - 62004 - PHQ-9 Billing: Yes ([id number]) TIFFANIE-7 Assessment Billing - TIFFANIE-7 Assessment Tool: TIFFANIE-7 Assessment 33188 ([id number]) Asthma Control Questionnaire - ACT Interpretation: Negative ([id number]) Assessment & Plan Assessment & Plan (1) DMII (diabetes mellitus, type 2): Code(s): E11.9 - Type 2 diabetes mellitus without complications Category: Medical Qualifiers: Diabetes mellitus terminal computer operator insulin use: with terminal computer operator use Diabetes mellitus complication status: with hyperglycemia Qualified Code(s): E11.65 - Type 2 diabetes mellitus with hyperglycemia; Z79.4 - retirement (current) use of insulin Plan: Patient's type 2 diabetes well controlled with current dose of insulin therapy. Today's A1c is 6.7. Goal A1c is to remain below 7.0 (2) Embolic stroke: Code(s): I63.9 - Cerebral infarction, unspecified Category: Medical Qualifiers: Laterality of affected vessel: right Precerebral and cerebral artery: middle cerebral artery Qualified Code(s): I63.411 - Cerebral infarction due to embolism of right middle cerebral artery Plan: Patient has a history an embolic stroke in the past that affected his mobility cognition inability to make quick decisions. He has not been able to drive since his stroke. He depends on family/friends and public transportation (3) Flat feet, bilateral: Code(s): M21.41 - Flat foot [pes planus] (acquired), right foot; M21.42 - Flat foot [pes planus] (acquired), left foot Category: Medical Plan: Patient reports he has bilateral foot pain to which he attributes to a lot of his walking. He continues to stay pretty active to maintain his health. He is interested in seeing a laborer chicken farm for shoe inserts. (4) Hypothyroid: Code(s): E03.9 - Hypothyroidism, unspecified Category: Medical Qualifiers: Hypothyroidism type: unspecified Qualified Code(s): E03.9 - Hypothyroidism, unspecified Plan: Patient continues on levothyroxine 50 mcg. Will check TSH to assure normal. (5) Asthma: Code(s): J45.909 - Unspecified asthma, uncomplicated Category: Medical Qualifiers: Asthma complication type: uncomplicated Asthma persistence: persistent Asthma severity: mild Qualified Code(s): J45.30 - Mild persistent asthma, unc omplicated Plan: Patient continues with daily Breo with good effect on his pulmonary status. He has not had any recent asthma exacerbations (6) HIV (human immunodeficiency virus infection): Code(s): B20 - Human immunodeficiency virus [HIV] disease Category: Medical Plan: Patient is followed by infectious disease specialist in [place]. He continues on antiviral therapy is consistent with. He reports his viral loads have undetectable (7) MDD (major depressive disorder), recurrent episode, moderate: Code(s): F33.1 - Major depressive disorder, recurrent, moderate Category: Medical Plan: Patient's PHQ-9 score 0, does have history of depression. Followed by psychiatrist who manages all his mental health medications. Orders: Orders AMB Hemoglobin A1c Today E11.9 - Type 2 diabetes mellitus without complications Influenza [id number] Immunization Today Z23 - Encounter for immunization Microalbumin, Random (w Creat) Today E11.65 - Type 2 diabetes mellitus with hyperglycemia, Z79.4 - terminal computer operator (current) use of insulin Lipid Panel Today I63.9 - Cerebral infarction, unspecified Comprehensive [place]. Panel Fast Today E11.65 - Type 2 diabetes mellitus with hyperglycemia, Z79.4 - terminal computer operator (current) use of insulin Complete Blood Count no Diff Today E11.65 - Type 2 diabetes mellitus with hyperglycemia, Z79.4 - retirement (current) use of insulin TSH reflex Free T4 Today E03.9 - Hypothyroidism, unspecified Referrals Podiatry Referral M21.41 - Flat foot [pes planus] (acquired), right foot, M21.42 - Flat foot [pes planus] (acquired), left foot Medications: Changed From insulin regular hum U-500 conc 30 units subcut I63.9 - Cerebral infarction, unspecified To insulin regular hum U-500 conc 30 units subcut TID I63.9 - Cerebral infarction, unspecified
== END | disposition home or self-care (01) ==
PROVIDERS: PCP Physician Assistant; Visit Provider Physician Assistant

== ENCOUNTER 2024-11-04 11:05 | Outpatient (REF) | payer MEDICARE, MEDICAID, SELFPAY ==
--- OUTSIDE RECORDS SUMMARY | 2024-11-04 12:25 | XMS_ITS | Patient Health Record ---
Author Organization [facility] Address [address] [place] [address] Care Team Providers Care Education Courses Sales Representative Name Role Phone Vipul Macdonald MD Primary Care Provider Bernardo You Unavailable [phone] Allergies Allergen (clinical drug ingredient) Drug/Non Drug Allergy documented on EMR Reaction Allergy Type Onset Date Status Tylox Unknown Drug Allergy Active Reason For Referral No Information Medications Medication SIG (Take, Route, Frequency, Duration) Notes Start Date End Date Status Mirtazapine 45 MG 1 tablet before bedt kay in the evening Orally Once a day Active Atorvastatin Calcium 80 MG Oral for 90 Active Zolpidem Tartrate 10 MG 1 tablet at bedt kay as needed Orally Once a day Active lamoTRIgine 200 MG TAKE 1 TABLET BY JEAN CLAUDE TH DAILY AT BEDTIME Oral for 90 Active HumuLIN R U-500 KwikPen 500 UNIT/ML as directed Subcutaneous QD Active Levothyroxine Sodium 50 MCG Oral for 90 Active ARIPiprazole 30 MG 1 tablet Orally Once a day Active Breo Ellipta 100-25 MCG/INH 1 puff Inhal ation Once a day Active hydrOXYzine Pamoate 50 MG 1 capsule as n eeded Orally as directed Active Metamucil 0.36 GM 2 with a large glass of water or juice Orally Once or twice a day everyday for constipation for 30 days 08/11/2023 Active Aspirin Low Dose 81 MG TAKE 1 TABLET BY MOUTH DAILY Oral for 90 Active MiraLax 17 GM 1 packet mixed with 8 ounces of fluid Orally Once or twice a day everyday for constipation for 30 day(s) 08/11/2023 Active Triumeq 600-50-300 MG Oral for 30 Active Vitamin D3 25 MCG (1000 UT) TAKE 1 TABLE T BY MOUTH DAILY Oral for 90 Active Etravirine 200 MG Oral for 30 Active Immunizations Vaccine Route Administration Date Status Comme nts Influenza Unknown 03/28/2018 Refused Problems Problem Type SNOMED Code ICD Code Onset Dates Problem Status W/U Status Risk Notes Problem Screening for malignant neoplasm of colon (912304992) Encounter for screening for malignant neoplasm of colon (Z12.11) Active confirmed Problem 722447755 History of adenomatous polyp of colon (Z86.010) Active confirmed Problem 727029922 Chronic hepatitis C without hepatic coma (B18.2) Active confirmed Problem 60443877358401 History of hepatitis C (Z86.19) Active confirmed Problem 20765515 Liver fibrosis (K74.0) Active confirmed Problem Chronic constipation (070135872) Chronic constipation (K59.09) Active confirmed Problem Hepatic fibrosis (disorder) (47174019) Liver fibrosis (K74.00) Active confirmed Plan Of Treatment Pending Test Test Name Order Date BUN 10/01/2012 CREATININE 10/01/2012 LIVER PROFILE 08/11/2023 LIVER PROFILE 03/28/2018 LIVER PROFILE 01/23/2014 LIVER PROFILE 06/05/2019 CBC w DIFF 06/05/2019 CBC w DIFF 08/11/2023 CBC w DIFF 03/28/2018 PROTHROMBIN TIME (PT, INR) 06/05/2019 PROTHROMBIN TIME (PT, INR) 03/28/2018 ALPHA-FETOPROTEIN,TUMOR MARKER 4 ALPHA-FETOPROTEIN,TUMOR MARKER 0 ALPHA-FETOPROTEIN,TUMOR MARKER 4 ALPHA-FETOPROTEIN,TUMOR MARKER 8 US ABD 06/05/2019 HCV LIVER FIBROSIS, FIBRO TEST 4 Prothrombin Time INR 08/11/2023 US abdomen comp w elastography 4 Future Test Test Name Order Date COLONOSCOPY 09/12/2012 COLONOSCOPY 03/28/2018 COLONOSCOPY 08/11/2023 Insurance Providers Payer Name Payer Address Payer Phone Subscriber Number Group Number Insured Name Patient Relationship to Insured Coverage Start Date Coverage End Date MEDICARE OF [place] [address] [place] [address] [id number] KYRA RANDLE Self - patient is the insured MEDICAID OF [facility] [address] [place] [address] [phone] [id number] KYRA RANDLE Self - patient is the insured Medical (General) History Medical History History ICD Code liver biopsy [id number] 3/4 and Sta ge II/IV chronic hepatits C--Genotype 1-Rx'd with 48 weeks of the Pegylated IF and Ribavirin from [id number] with success-has had nondetectable Hep BOILER/CHILLER OPERATOR levels since-reports negative levels when checked with Dr. Lori Sanchez HIV infection asthma depression IDDM HTN Hypothyroid Denies CT,CVA,renal disease Screening colonoscopy in 11/2012 with the removal of 6 small tubular adenomas Asymptomatic gallstones--he is aware Mild stroke / 2018 Screening colonoscopy in May 2018 w ith removal of a tubular adenoma Surgical History Surgery Date(Month/Year) Hernia surgery
--- OUTSIDE RECORDS SUMMARY | 2024-11-04 12:25 | XMS_ITS | Clinical Summary ---
[facility] Organization [facility] Address [address] [place] [address] Care Team Providers Care Outside Event Sales Specialist Name Role Phone Unavailable Primary Care Provider Unavailabl e Social History Tobacco Use Types Packs/Day Years Used Date Smoking Tobacco: Never Assessed Sex and Gender Information Value Date Recorded Sex Assigned at Not on file Legal Sex Male 7:18 PM EST Gender Identity Not on file Sexual Orientation Not on file Plan of Treatment Health Maintenance Due Date Last Done Comments DTaP,Tdap,and Td Vaccines (1 - Tdap) 1980 Pneumococcal Vaccine: 50+ Ye ars (1 of 1 - PCV) 12/11/2011 Zoster Vaccines (1 of 2) 12/11/2011 COVID-19 Vaccine (1 - 2023-2 5 season) 2023 Depression Screening 04/10/2024 Influenza Vaccine (#1) 2024 RSV Immunization Adult Patie nts (1 - 1-dose 75+ series) 2036 HIB [...] patient's age to complete this topic Meningococcal B Vaccine Aged Out No l onger eligible based on patient's age to complete this topic RSV Immunization Patients Un lanette 20 months Aged Out No longer eligible b ased on patient's age to complete this topic Varicella Vaccines Aged Out No longer eligible based on patient's age to complete this topic
--- OUTSIDE RECORDS SUMMARY | 2024-11-04 12:25 | XMS_ITS | Encounter Summary ---
Author Organization [facility] Address [address] [place] [address] Care Team Providers Care Wash Plant Operator Name Role Phone Unavailable Primary Care Provider Unavailabl e Encounter Details Date Type Department Care Team (Latest Contact Info) Description 02/18/2020 Abstract C CONVERSIONS Dental, Provider, DDS Social History Tobacco Use Types Packs/Day Years Used Date Smoking Tobacco: Never Assessed Sex and Gender Information Value Date Recorded Sex Assigned at Male 02/07/2022 10:17 AM EDT Legal Sex Male 10:17 AM EDT Gender Identity Male 02/07/2022 10:17 AM EDT Sexual Orientation Choose not to disclose 2022 2:55 PM EST Sexual Orientation Straight 03/21/2023 2: 55 PM EST documented as of this encounter Plan of Treatment Not on file documented as of this encounter Visit Diagnoses Not on filedocumented in this encounter
--- OUTSIDE RECORDS SUMMARY | 2024-11-04 12:26 | XMS_ITS | Patient Health Record ---
Author Organization [facility] [place] Address [address] [place] [address] Care Team Providers Care Dairy Grazer Name Role Phone Doni Stevenson Primary Care Provider Unavailab pham Melissa Champion Unavailable [phone] Allergies No Known Allergies Results Component Value Reference Range Notes HEMOGLOBIN A1C (GLYCOHEMOGLO BIN) Reviewed date:08/26/2024 01:18:10 PM Interpretation: Performing Lab: Notes/Report: HEMOGLOBIN A1C % (HH) 6.3 Reason For Referral No Information Medications Medication SIG (Take, Route, Fr equency, Duration) Notes Start Date End Date Status ARIPiprazole Active lamoTRIgine Active Zolpidem Tartrate Ac tive hydrOXYzine HCl Acti ve Levothyroxine Sodium Active Triumeq Active Atorvastatin Calcium Active Ketoconazole 2 % 1 application Apply a thin layer to externally to feet, even between toes Twice a day; Duration: 30 days Active Mirtazapine Active Social History Tobacco Use: Social History Observation Description Date Details (start date - stop date) Never Smoker NA - NA Tobacco use other than smoking: Question Answer Notes Are you an other tobacco user? No Tobacco Control (Standard) Question Answer Notes Tobacco use: Nonsmoker Additional Findings: Tobacco non-user Current no nsmoker AUDIT-C (Standard) Question Answer Notes Did you have a drink containing alcohol in the p ast year? No Points 0 Interpretation Negative Problems Problem Type SNOMED Code ICD Code Onset Dates Problem Status W/U Status Risk Notes Problem Polyneuropathy due to type 2 diabetes mellitus (114512716) Type 2 diabetes mellitus with diabetic polyneuropathy (E11.42) Active confirmed Problem Acquired hammer toe of right foot (8651577783193666 ) Hammer toe of right foot (M20.41) Active confirmed Problem Acquired hammer toe of left foot (0040522866783617 ) Hammer toe of left foot (M20.42) Active confirmed Problem Plantar fascial fibromatosis (49951542) Plantar fasciitis, bilateral (M72.2) Active confirmed Vital Signs Blood pressure diastolic 81 mm Hg 09/05/2024 Height 5 ft 9 in in 09/05/2024 Blood pressure systolic 123 mm Hg 09/05/2024 Weight 172 lbs 09/05/2024 BMI 25.4 kg/m2 09/05/2024 Procedures Procedure Date Ordered Date Performed Result Body Sit e 29218-ENDN SKIN LESIONS, 2 TO 4 09/05/2024 N/A [id number] DYSTROPHIC NAILS ANY # 09/05/2024 N/A Encounters Encounter Location Date Provider Diagnosis [address] [address] 09/05/2024 Melissa Champion Pain in right foot M79.671 ; Plantar fasciitis, bilateral M72.2 ; Calcaneal spur, right foot M77.31 ; Other myositis of right foot M60.871 ; Bursitis of right foot M77.51 ; Pain in left foot M79.672 ; Calcaneal spur, left foot M77.32 ; Other myositis of left foot M60.872 ; Bursitis of left foot M77.52 ; Tinea pedis of both feet B35.3 ; Type 2 diabetes mellitus with diabetic polyneuropathy E11.42 ; Hammer toe of right foot M20.41 and Hammer toe of left foot M20.42 [facility] [address] 08/28/2024 Melissa Black [address] [address] 09/11/2024 Melissa Champion Assessments Encounter Date Diagnosis (ICD Code) Assessment Notes Treatment Notes Treatment Clinical Notes Section Notes 09/05/2024 Pain in right foot (ICD-10 - M79.671) 09/05/2024 Calcaneal spur, right foot (ICD-10 - M77.31) 09/05/2024 Plantar fasciitis, bilateral (ICD-10 - M72.2) Patient Educated with: HEEL CORD STRETCHES.pdf (HEEL CORD STRETCHES.pdf ) Patient Educated with: RICE THERAPY.pdf (RICE THERAPY.pdf) 09/05/2024 Other myositis of right foot (ICD-10 - M60.871) 09/05/2024 Bursitis of right foot (ICD-10 - M77.51) 09/05/2024 Pain in left foot (ICD-10 - M79.672) 09/05/2024 Calcaneal spur, left foot (ICD-10 - M77.32) 09/05/2024 Other myositis of left foot (ICD-10 - M60.872) 09/05/2024 Bursitis of left foot (ICD-10 - M77.52) 09/05/2024 Tinea pedis of both feet (ICD-10 - B35.3) 09/05/2024 Type 2 diabetes mellitus with diabetic polyneuropathy (ICD-10 - E11.42) 09/05/2024 Hammer toe of right foot (ICD-10 - M20.41) 09/05/2024 Hammer toe of left foot (ICD-10 - M20.42) Plan Of Treatment Pending Test Test Name Order Date 06005-VIMR SKIN LESIONS, 2 TO 4 09/06/19 25 [id number] DYSTROPHIC NAILS ANY # Next Appt Details Provider Name:Melissa Champion , 03/13/2025 11:00:00 AM, [address] [place], [address], Insurance Providers Payer Name Payer Address Payer Phone Subscriber Number Group Number Insured Name Patient Relationship to Insured Coverage Start Date Coverage End Date Medicare [facility] [address] [place] [address] [id number] Aroldo Paula Self - patient is the insured 3 Medical (General) History Medical History History ICD Code Anxiety Depression Diabetic Stroke HIV
[2024-11-04 13:26] LABS: Hematocrit 40.1 % (42.0-52.0); Hemoglobin 14.3 g/dl (14.0-18.0); Mean Corpuscular HGB Conc 35.7 g/dl (31.0-36.0); Mean Corpuscular Hemoglobin 35.1 pg (27.0-33.0); Mean Corpuscular Volume 98.5 fL (80.0-98.0); NRBC Abs Auto 0.000 X10*3/uL (0.0-0.012); NRBC Pct Auto 0.0 /100WBC (0.0-0.2); Platelet Count 229 X10*3/uL (160-400); Red Blood Count 4.07 X10*6/uL (4.60-5.80); White Blood Count 5.2 X10*3/uL (4.8-10.8)
[2024-11-04 13:49] LABS: Alanine Aminotransferase 45 U/L (0-40); Albumin Level 4.7 g/dL (3.5-5.0); Alkaline Phosphatase 124 U/L (39-117); Anion Gap 12 (12-20); Aspartate Amino Transferase 37 U/L (5-37); Blood Urea Nitrogen 15 mg/dL (9-16); Calcium 9.4 mg/dL (8.4-10.2); Carbon Dioxide 26 mmol/L (22-29); Chloride 107 mmol/L (96-108); Cholesterol 104 mg/dL (<200); Estimated Glomerular Filt Rate > 60; HDL Cholesterol 52 mg/dL (>40); Potassium 3.9 mmol/L (3.3-5.1); Sodium 141 mmol/L (135-145); Total Protein 7.4 g/dL (6.5-8.0); Triglycerides 48 mg/dL (<150)
[2024-11-04 14:28] LABS: Microalbum/Creatinine Ratio Ur 25.1 ug/mg cr (<30)
== END 2024-11-04 11:06 | disposition home or self-care (01) ==
LOC: HO.HMGCLDS 11:05
PROVIDERS: PCP Physician Assistant; Visit Provider Physician Assistant
DX: I63.9 Cerebral infarction, unspecified (principal); E11.65 Type 2 diabetes mellitus with hyperglycemia; Z79.4 Long term (current) use of insulin; E03.9 Hypothyroidism, unspecified
CPT/HCPCS: 36415; 80053; 80061; 82043; 82570; 84443; 85027

== ENCOUNTER 2024-11-12 14:08 | Outpatient (AMB) | payer MEDICARE, MEDICAID, SELFPAY ==
--- NOTE | 2024-11-12 14:17 | A.OFFPC_ITS ---
Vital Signs 11/12/24 14:18 Height 5 ft 9 in Weight 164 lb 4 oz BMI 24.3 BP 120/70 Blood Pressure Location Lt brachial Position Sitting Pulse 60 Pulse Source Pulse Oximeter Temp 97.3 F Temp Source Temporal Artery Scan Pulse Oximetry (%) 97 Oxygen Delivery Method Room Air Intake Visit Reasons: Annual Exam Intake Note: Patient is here today for a physical. Editor Greeting Card Required: No Product Blending Supervisor: Not Required per policy Accompanied by: Self / Same As Patient Allergies From TYLOX Allergy (Intermediate, Uncoded 11/12/24 14:48) ITCHING Medication List - Last Reconciled 11/12/24 by Doni Stevenson PA-C hcepqrkr-pdauekcakvlp-dzjwqpl 600-50-300 mg 1 tab PO DAILY aripiprazole 10 mg PO DAILY aspirin 81 mg PO DAILY atorvastatin 80 mg PO DAILY cholecalciferol (vitamin D3) 25 mcg PO DAILY etravirine 200 mg PO BID fluticasone furoate-vilanterol 100-25 mcg/dose (Breo Ellipta) 1 inh inhalation DAILY 30 days hydroxyzine HCl 25 mg PO BID insulin regular hum U-500 conc 30 units subcut TID lamotrigine 200 mg PO DAILY lamotrigine 100 mg PO DAILY lancets As directed levothyroxine 50 mcg PO DAILY mirtazapine 45 mg PO BEDTIME tamsulosin 0.4 mg PO DAILY zolpidem 10 mg PO BEDTIME PRN Tobacco use date assessed: 11/12/24 Dental Screening Dental Screen Date: 11/12/24 Did you have a dental visit in the last 12 months?: No Did you have a dental problem in the last 6 months where you did not have access to dental care?: No Was dental information given to patient?: Patient has dentist HPI Annual Exam HPI Details Patient is a 63-year-old male here today for a routine annual physical. This the 1st time I am meeting this 63-year-old male with a past medical history significant for hypertension, hyperlipidemia, type 2 diabetes, MDD, HIV( on antiviral therapy), history of embolic stroke, carotid artery disease with left carotid endarterectomy. Concern--> .. HIV: Seed ID ( Dr Whitmore) [facility] and continues on antiviral therapy. He reports his viral loads have been nondetectable. .. MDD: Sees a Dr. Jacy Crum ( [facility] ) who manages his mental health medications. He feels stable from a mental health point of [place] . DMII: Today's A1c is 6.4. He continues with insulin therapy on a daily basis . CVA: Had a previous stroke many years ago and left him with cognitive and motor delay. He has not been able to drive. He depends on family and friends for transportation. He lives on a fix income. Colorectal cancer screening: hx of colon polyps - Dr aJckson. Suki mcbride anymore colonoscopys. Vaccines: Up-to-date with pneumonia vaccine, tetanus vaccine and COVID vaccine. never had chicken pox. Laboratory Tests 08/23/23 05/16/24 11/04/24 13:10 13:55 11:11 RBC 4.07 L Hgb 15.3 14.3 Hct 40.1 L Fasting Glucose 194 H Hgb A1c (Clinic) 6.3 H ALT 45 H Alkaline Phosphata se 124 H Cholesterol 104 LDL Cholesterol, C alc 43 TSH 2.24 Urine Microalbumin 44.0 PFSH Medical History HIV (human immunodeficiency virus infection) Other and unspecified hyperlipidemia Essential hypertension Type 2 diabetes mellitus with unspecified complications Status post placement of implantable loop recorder Embolic stroke Surgical History History of carotid endarterectomy (~10/29/18) Family History Mother Breast CA Other Mental health disorder Substance use disorder Social History Housing: Apartment Alcohol intake: never Patient Tobacco Use Status: Former Tobacco user Years Smoked: 25 +/- e-Cigarette/Vaping Use: Never Used Second Hand Smoke Exposure: Yes service: No Current occupational status: disabled Cognitive needs: No Hearing needs: No Vision needs: No Questionnaire Thrive Questionnaire Date Thrive assessed: 05/16/24 I am a: Patient What is your living situation today?: I have a steady place to live Within the past 12 months, did the food you bought not last and you didn't have the money to get more?: Never true Within the past 12 months, did you worry whether your food would run out before you got money to buy more?: Never true Do you have trouble paying for medicines?: No Do you have trouble getting transportation to medical appointments?: No Do you have trouble paying your heating and electricity bill?: No Do you have trouble taking care of your child, family member or friend?: No Do you have trouble with day-to-day activities such as bathing, preparing meals, shopping, managing finances, etc.?: No Are you currently unemployed and looking for a job?: Yes Are you interested in more education?: No Please select the resources that you would like help with: None Currently or been in a relationship where the following occur: I choose not to answer THRIVE Score: 0 TIFFANIE-7 AMB Questionnaire TIFFANIE-7 Date TIFFANIE - 7 assessed: 05/16/24 Source: Developed by Drs. Bernardo Randall, Rachael Leroy, Robin Hensley and colleagues, with an educational maryanne from [employer]. Review of Systems Const Denies body aches, Denies chills, Denies excessive sweating, Denies fatigue, Denies fever(s) and Denies headache(s) Eyes Denies blurry vision ENT Denies dysphagia, Denies vertigo, Denies dizziness, Denies headache(s), Denies hearing loss and Denies tinnitus Card Denies chest pain, Denies chest pain with activity, Denies syncope, Denies irregular heart rhythm and Denies dyspnea Resp Denies chest congestion, Denies cough, Denies hemoptysis, Denies dyspnea and Denies wheezing GI Denies abdominal pain, Denies melena, Denies hematochezia, Denies coffee ground emesis, Denies dysphagia, Denies diarrhea, Denies nausea and Denies vomiting Denies difficulty urinating, Denies dysuria, Denies urinary frequency, Denies urinary hesitancy and Denies urinary urgency Musc Denies arthralgias, Denies limited range of motion, Denies muscle cramps and Denies muscle weakness Skin/Breast Denies rash and Denies skin ulcer Neuro Denies Abnormal speech present, Denies confusion, Denies vertigo, Denies dizziness, Denies syncope, Denies headache(s), Denies memory loss and Denies se izure-like activity Psych Denies anxiety, Denies confusion, Denies depression, Denies memory loss, Denies panic attacks and Denies paranoia Endo Denies excessive sweating, Denies fatigue, Denies flushing, Denies polydipsia and Denies polyuria Aller/Immun Denies wheezing Physical exam (Primary Care) Vital Signs: Last Vital Signs Temp 97.3 F 11/12/24 14:18 Pulse 60 11/12/24 14:18 BP 120/70 11/12/24 14:18 Pulse Ox 97 11/12/24 14:18 Oxygen Delivery Method Room Air 11/12/24 14:18 BMI result Body Mass Index 24.3 Tobacco/Smoking Status: Tobacco use Status Tobacco use date assessed 11/12/24 11/12/24 14:44 Patient Tobacco Use Status Former Tobacco user 11/12/24 14:44 e-Cigarette/Vaping Use Never Used 11/12/24 14:44 Thrive Assessment: Date of Thrive Assessment Date Thrive assessed 05/16/24 11/12/24 14:44 Currently or been in a relationship where the following occur: I choose not to answer Const General: cooperative, comfortable, no acute distress, alert and awake; No confusion Orientation/consciousness: oriented to person, oriented to place, patient oriented x3 and No confusion HENMT Head: Yes normocephalic Ears: external ears normal and TM's normal bilaterally Face and sinus: No sinus tenderness Mouth: Normal oral and palatal mucosa present and tongue normal Teeth and gingiva: dentition normal and gingiva normal Throat: Yes posterior oropharynx normal, Yes tonsils normal and Yes uvula midline Eyes Conjunctivae: conjunctivae normal Sclerae: sclerae normal Pupils: Equal, round and reactive pupils present EOM: EOMs intact bilaterally Direct Ophthalmoscopy: No no photophobia Neck Neck: Yes no lymphadenopathy, No tender and Yes no JVD Thyroid: Thyroid normal Carotids: no bruits Chest Chest palpation & inspection: no tenderness Resp Effort & Inspection: normal respiratory effort, no audible wheezes, not labored and no stridor Auscultation: no crackles, no rales, no rhonchi and no wheezes Cardio Jugular venous distension: no JVD Rate: regular rate, not bradycardic and not tachycardic Rhythm: regular rhythm Bruits: no carotid bruits Peripheral pulses: Peripheral pulses 2+ throughout GI Inspection: Yes normal to inspection, No abdominal wall ecchymosis and No visible herniation Palpation (GI): Soft to palpation, nontender, no guarding, not rigid and No hepatosplenomegaly present Auscultation: normoactive bowel sounds General: Yes no CVA tenderness Back/Spine/Pelvis Back: no CVA tenderness and No back tenderness Cervical Spine: cervical ROM normal Thoracic/Lumbar Spine: thoracic and lumbar spine normal to inspection, straight leg raise negative bilaterally, No thoraco-lumbar ROM limited and No lumbar spinal tenderness Skin Lesions: no lesions Rashes: no rashes Wounds: no wounds Neuro General: oriented to person, oriented to place, patient oriented x3, CN's II-XI intact bilaterally and No confusion Cranial nerves: Yes Equal, round and reactive pupils present and Yes Normal accommodation reflex present Cognition (Neuro): normal cognition Speech: No Abnormal speech present Gait exam (Neuro): Normal gait present Motor exam (neuro): 5/5 motor strength present throughout Extrem Right upper extremity: full ROM; no cyanosis Left upper extremity: full ROM; no cyanosis Right lower extremity: no edema Left lower extremity: no edema Psych Appearance: grossly normal Mental Status: mental status grossly normal Affect: normal affect Attitude: cooperative Thought process: Normal thought process present Results AMB Hemoglobin A1c AMB Hemoglobin A1c 6.4 % Last Edit by WINNIE Corbett on 11/12/24 14:51 Coding Diagnoses Annual physical exam Z00.00 Type 2 diabetes mellitus with diabetic microalbuminuria, with long-term current use of insulin E11.29; R80.9; Z79.4 Diabetes mellitus local intermodal truck driver insulin use: with local intermodal truck driver use Diabetes mellitus complication status: with kidney complications Diabetes mellitus complication detail: with diabetic microalbuminuria Cerebrovascular accident (CVA) due to embolism of right middle cerebral artery I63.411 Precerebral and cerebral artery: middle cerebral artery Laterality of affected vessel: right Hypothyroidism, unspecified type E03.9 Hypothyroidism type: unspecified Mild persistent asthma without complication J45.30 Asthma severity: mild Asthma persistence: persistent Asthma complication type: uncomplicated Currently asymptomatic HIV infection, with history of HIV-related illness B20 HIV symptom status: currently asymptomatic, with history of HIV-related illness Assessment & Plan Assessment & Plan (1) Annual physical exam: Code(s): Z00.00 - Encounter for general adult medical examination without abnormal findings Category: Medical (2) DMII (diabetes mellitus, type 2): Code(s): E11.9 - Type 2 diabetes mellitus without complications Category: Medical Qualifiers: Diabetes mellitus local intermodal truck driver insulin use: with local intermodal truck driver use Diabetes mellitus complication status: with kidney complications Diabetes mellitus complication detail: with diabetic microalbuminuria Qualified Code(s): E11.29 - Type 2 diabetes mellitus with other diabetic kidney complication; R80.9 - Proteinuria, unspecified; Z79.4 - longterm (current) use of insulin Plan: Patient's type 2 diabetes well controlled with current dose of insulin therapy. Today's A1c is 6.7. Goal A1c is to remain below 7.0 (3) Embolic stroke: Code(s): I63.9 - Cerebral infarction, unspecified Category: Medical Qualifiers: Precerebral and cerebral artery: middle cerebral artery Laterality of affected vessel: right Qualified Code(s): I63.411 - Cerebral infarction due to embolism of right middle cerebral artery Plan: Patient has a history an embolic stroke in the past that affected his mobility cognition inability to make quick decisions. He has not been able to drive since his stroke. He depends on family/friends and public transportation (4) Hypothyroid: Code(s): E03.9 - Hypothyroidism, unspecified Category: Medical Qualifiers: Hypothyroidism type: unspecified Qualified Code(s): E03.9 - Hypothyroidism, unspecified Plan: Patient continues on levothyroxine 50 mcg. Will check TSH to assure normal. (5) Asthma: Code(s): J45.909 - Unspecified asthma, uncomplicated Category: Medical Qualifiers: Asthma severity: mild Asthma persistence: persistent Asthma complication type: uncomplicated Qualified Code(s): J45.30 - Mild persistent asthma, uncomplicated Plan: Patient continues with daily Breo with good effect on his pulmonary status. He has not had any recent asthma exacerbations (6) HIV (human immunodeficiency virus infection): Code(s): B20 - Human immunodeficiency virus [HIV] disease Category: Medical Qualifiers: HIV symptom status: currently asymptomatic, with history of HIV-related illness Qualified Code(s): B20 - Human immunodeficiency virus [HIV] disease Plan: Patient is followed by infectious disease specialist in [place]. He continues on antiviral therapy is consistent with. He reports his viral loads have undetectable Orders: Orders Prostate Specific Antigen Scr Today E11.29 - Type 2 diabetes mellitus with other diabetic kidney complication, R80.9 - Proteinuria, unspecified, Z12.5 - Encounter for screening for malignant neoplasm of prostate, Z79.4 - longterm (current) use of insulin AMB Hemoglobin A1c Today E11.65 - Type 2 diabetes mellitus with hyperglycemia, Z79.4 - rodent exterminator (current) use of insulin TSH reflex Free T4 Today E03.9 - Hypothyroidism, unspecified Comprehensive Gilbert. Panel Fast Today E11.29 - Type 2 diabetes mellitus with other diabetic kidney complication, R80.9 - Proteinuria, unspecified, Z79.4 - longterm (current) use of insulin Complete Blood Count no Diff Today E11.29 - Type 2 diabetes mellitus with other diabetic kidney complication, R80.9 - Proteinuria, unspecified, Z79.4 - rodent exterminator (current) use of insulin Microalbumin, Random (w Creat) Today E11.29 - Type 2 diabetes mellitus with other diabetic kidney complication, R80.9 - Proteinuria, unspecified, Z79.4 - longterm (current) use of insulin Lipid Panel Today I63.411 - Cerebral infarction due to embolism of right middle cerebral artery
[2024-11-12 14:18] VITALS: BP 120/70; PULSE 60; TEMP 36.3; O2SAT 97; BMI 24.3
--- OUTSIDE RECORDS SUMMARY | 2024-11-12 14:50 | XMS_ITS | Encounter Summary ---
Author Organization [facility] Address [address] [place] [address] Care Team Providers Care Client Manager Large Law Name Role Phone Unavailable Primary Care Provider [...]
--- OUTSIDE RECORDS SUMMARY | 2024-11-12 14:50 | XMS_ITS | Clinical Summary ---
[facility] Organization [facility] Address [address] [place] [address] Care Team Providers Care Communications Department Chairperson Name Role Phone Unavailable Primary Care Provider [...]
--- OUTSIDE RECORDS SUMMARY | 2024-11-12 14:50 | XMS_ITS | Patient Health Record ---
Author Organization [facility] Address [address] [place] [address] Care Team Providers Care Financial Agent Name Role Phone Vipul Macdonald MD Primary Care Provider Bernardo You Unavailable [phone] Allergies Allergen (clinical drug ingredient) Drug/Non Drug [...] Problem Screening for malignant neoplasm of colon (790774535) Encounter for screening for malignant neoplasm of colon (Z12.11) Active confirmed Problem 369143600 History of adenomatous polyp of colon (Z86.010) Active confirmed Problem 147911368 Chronic hepatitis C without hepatic coma (B18.2) Active confirmed Problem [id number] History of hepatitis C (Z86.19) Active confirmed Problem 00970564 Liver fibrosis (K74.0) Active confirmed Problem Chronic constipation (594640432) Chronic constipation (K59.09) Active confirmed Problem Hepatic fibrosis (disorder) (24581756) Liver fibrosis (K74.00) Active confirmed Plan Of Treatment Pending Test Test Name Order Date BUN 10/01/2012 CREATININE 10/01/2012 LIVER PROFILE 01/23/2014 LIVER PROFILE 06/05/2019 LIVER PROFILE 08/11/2023 LIVER PROFILE 03/28/2018 CBC w DIFF 06/05/2019 CBC w DIFF 08/11/2023 CBC w DIFF 03/28/2018 PROTHROMBIN TIME (PT, INR) 03/28/2018 PROTHROMBIN TIME (PT, INR) 06/05/2019 ALPHA-FETOPROTEIN,TUMOR MARKER 4 ALPHA-FETOPROTEIN,TUMOR MARKER 8 ALPHA-FETOPROTEIN,TUMOR MARKER 4 ALPHA-FETOPROTEIN,TUMOR MARKER 0 US ABD 06/05/2019 HCV LIVER FIBROSIS, FIBRO TEST 4 Prothrombin Time INR 08/11/2023 US abdomen comp w elastography 4 Future Test Test Name Order Date COLONOSCOPY 09/12/2012 COLONOSCOPY 03/28/2018 COLONOSCOPY 08/11/2023 Insurance Providers Payer Name Payer Address Payer Phone Subscriber Number Group Number Insured Name Patient Relationship to Insured Coverage Start Date Coverage End Date MEDICARE OF [place] [address] [place] [address] [id number] KYRA RANDLE Self - patient is the insured [facility] [address] [place] [address] [phone] [id number] KYRA RANDLE Self - patient is the insured Medical (General) History Medical History History ICD Code liver biopsy [id number]-Grade 3/4 and Sta ge II/IV chronic hepatits C--Genotype 1-Rx'd with 48 weeks of the Pegylated IF and Ribavirin from 3929-1824 with success-has had nondetectable Hep [employer] levels since-reports negative levels when checked with Dr. Lori Sanchez HIV infection asthma depression IDDM HTN Hypothyroid Denies VT,CVA,renal disease Screening colonoscopy in 11/2012 with the removal of 6 small tubular adenomas Asymptomatic gallstones--he is aware Mild stroke / 2018 Screening colonoscopy in May 2018 w ith removal of a tubular adenoma Surgical History Surgery Date(Month/Year) Hernia surgery
== END 2024-11-12 15:04 | disposition home or self-care (01) ==
LOC: HO.HMCH 14:09
PROVIDERS: PCP Physician Assistant; Visit Provider Physician Assistant
DX: E11.65 Type 2 diabetes mellitus with hyperglycemia (principal); Z79.4 Long term (current) use of insulin

== ENCOUNTER → 2024-11-12 14:08 | Outpatient (BNVA) | payer MEDICARE, MEDICAID, SELFPAY | PROVIDERS: PCP Physician Assistant; Visit Provider Physician Assistant | DX: Z00.00 Encounter for general adult medical examination without abnormal findings (principal); E11.29 Type 2 diabetes mellitus with other diabetic kidney complication; R80.9 Proteinuria, unspecified; E03.9 Hypothyroidism, unspecified; J45.30 Mild persistent asthma, uncomplicated; B20 Human immunodeficiency virus [HIV] disease; Z79.4 Long term (current) use of insulin; Z86.73 Personal history of transient ischemic attack (TIA), and cerebral infarction without residual deficits | CPT/HCPCS: 83036; 99396 ==